=== PATIENT | male | born 1995 | race Caucasian/White ===

== ENCOUNTER 2021-02-04 11:54 | Emergency (ER) | payer OTHER ==
[~2021-02-04] VITALS: Ht 185.4 cm; Wt 100.0 kg
--- NOTE | 2021-02-04 12:21 | NUR ---
pt presents to ed with c/o fever that will not resolve with Tylenol for 9 days. pt states covid+ on wednesday. pt denies CP/SOB. pt a&o, resps even and unlabored, vss, nadn.
--- NOTE | 2021-02-04 12:50 | NUR ---
ermd Law at bedside for eval
--- NOTE | 2021-02-04 13:00 | NUR ---
PIV placed, labs drawn. XR at bedside.
[2021-02-04 13:11] LABS: BASOPHILS % (AUTO) 1 % (0-1); EOSINOPHILS % (AUTO) 0 % (1-7); LYMPHOCYTES % (AUTO) 26 % (22-44); MEAN CORPUSCULAR HEMOGLOBIN 28.5 pg (27.5-34.5); MEAN CORPUSCULAR HGB CONC 35.7 g/dL (33.2-36.2); MEAN PLATELET VOLUME 8.7 fL (7.4-10.4); MONOCYTES % (AUTO) 10 % (2-9); NEUTROPHILS % (AUTO) 63 % (42-75); PLATELET COUNT 145 x10^3/uL (130-400); RED BLOOD COUNT 5.32 x10^6/uL (4.38-5.82); RED CELL DISTRIBUTION WIDTH 12.8 % (9.4-14.8)
[2021-02-04 13:21] LABS: ALBUMIN 3.6 g/dL (3.4-5.0); ANION GAP 6 mmol/L (5-15); CALCIUM 8.4 mg/dL (8.5-10.1); CHLORIDE 104 mmol/L (98-107)
[2021-02-04 13:29] LABS: ALANINE AMINOTRANSFERASE 29 U/L (12-78); ALKALINE PHOSPHATASE 46 U/L (45-117); BILIRUBIN,TOTAL 0.7 mg/dL (0.2-1.0); CREATININE 0.95 mg/dL (0.7-1.3); TOTAL PROTEIN 7.1 g/dL (6.4-8.2)
[2021-02-04] MEDS ORDERED: SODIUM CHLORIDE 0.9% 1,000ML IVBOLUS ONE (13:30)
[2021-02-04] MEDS ORDERED: SODIUM CHLORIDE FLUSH 10ML SYR IVF ONE (13:30)
--- NOTE | 2021-02-04 13:30 | NUR ---
pt resting in bed, vss, nadn. fluids infusing, call light in reach.
[2021-02-04 14:23] VITALS: BP 133/67
--- NOTE | 2021-02-04 14:44 | NUR ---
DC INSTRUCTIONS REVIEWED
== END 2021-02-04 14:54 | disposition home or self-care (01) ==
LOC: ED 14:50
DX: U07.1 COVID-19 (principal); R50.9 Fever, unspecified; E11.65 Type 2 diabetes mellitus with hyperglycemia; R94.31 Abnormal electrocardiogram [ECG] [EKG]
CPT/HCPCS: 36415; 71045; 80053; 83605; 83690; 84145; 85025; 86140; 87040; 93005; 96360; 99285; J7030